=== PATIENT | male | born 1945 | race Caucasian/White ===

== ENCOUNTER 2017-07-09 13:06 | Emergency (ER) ==
[~2017-07-09] VITALS: Ht 165.1 cm; Wt 65.3 kg
[~2017-07-09 13:06] MED LIST: ATENOLOL50 MG PO; Aspirin PO; CLONAZEPAM0.5 MG PO; DICLOFENAC SOD100 MG PO; HYDROCODON-ACE1 EAC9 PO; LOSARTAN POTAS100 MG PO; MORPHINE PO; TIZANIDINE HCL4 MG PO
== END 2017-07-09 17:10 | disposition short-term general hospital (02) ==
LOC: ER 13:06
DX: R20.0 Anesthesia of skin (principal); M79.602 Pain in left arm; M79.601 Pain in right arm; M54.5 Low back pain; M79.89 Other specified soft tissue disorders

== ENCOUNTER → 2018-02-03 | Outpatient (CLI) | payer MEDICARE ==
[~2018-02-03] MED LIST changes: +REGADENOSON 0.4 MG/5 ML SYR IV ONE
--- NOTE | 2018-02-03 16:58 | Consultation ---
DATE OF CONSULTATION: February 03, 2018 CARDIOLOGY CONSULTATION REQUESTING PHYSICIAN: Dr. Andre Mendez REASON FOR CONSULTATION: Chest pain. HISTORY OF PRESENT ILLNESS: This is a 72-year-old man with a history of hypertension, who was referred for a nuclear stress test. The patient denies any history of heart disease. However, he does note that he has been short of breath for the last 6 weeks with left lower extremity swelling for the last 4 months. He denies any orthopnea or PND. Of note, he does endorse occasional chest tightness approximately once a week that is improved after he takes his anxiolytic. He denies chest pain otherwise as well as palpitations. REVIEW OF SYSTEMS: Negative, except as per HPI. PAST MEDICAL HISTORY 1. Hypertension. 2. History of polio. PAST SURGICAL HISTORY: Knee surgery. ALLERGIES: SULFA DRUGS. MEDICATIONS: Please see medication list. SOCIAL HISTORY: Previously smoked 1 pack per day for 50 years, quit 2 weeks ago. No alcohol or drugs. FAMILY HISTORY: Pertinent for parents with heart disease. Details are not available. PHYSICAL EXAMINATION VITAL SIGNS: Reviewed. GENERAL: Well-developed, well-nourished man in no acute distress. Awake and alert. HEENT: Normocephalic and atraumatic. Pupils are equal. No scleral icterus. NECK: Supple. No thyromegaly or cervical lymphadenopathy. No carotid bruit. LUNGS: Clear to auscultation bilaterally. No wheezes or crackles. CARDIOVASCULAR: Normal rate, regular rhythm. No murmur. Normal S1 and S2. ABDOMEN: Soft. Nontender. EXTREMITIES: No edema. NEURO: Nonfocal exam. IMPRESSION 1. Chest pain. 2. Dyspnea. 3. Hypertension. RECOMMENDATIONS: We will proceed with a pharmacologic nuclear stress test for further evaluation. Thank you. Job#: [id number]
--- NOTE | 2018-02-03 19:33 | Cardiology Report ---
DATE OF STUDY: PROCEDURE TITLE: Rest/stress single isotope SPECT imaging with pharmacologic stress and gated SPECT imaging. INDICATIONS: Chest pain. PROCEDURE: Pharmacologic stress testing was performed with regadenoson per protocol. The heart rate was 70 beats per minute at baseline and increased to a maximal heart rate of 97 beats per minute during the regadenoson infusion. The rest blood pressure was 146/77 mmHg and decreased to 137/70 mmHg, which is a normal response. The patient did not develop any significant symptoms. The resting electrocardiogram demonstrated normal sinus rhythm. There were no ST segment changes consistent with myocardial ischemia. Next, myocardial perfusion imaging was performed at rest following the injection of 11 mCi of tetrofosmin. At peak pharmacologic effect, The patient was injected with 33 mCi of tetrofosmin. Gated poststress tomographic imaging was performed. FINDINGS: The overall quality of the study is fair. The left ventricular cavity is noted to be normal size on the rest and stress studies. SPECT images demonstrate homogeneous tracer distribution throughout the myocardium. Gated SPECT imaging reveals normal myocardial thickening and wall motion. The left ventricular ejection fraction was calculated to be 66%. IMPRESSION: Myocardial perfusion imaging is normal. Overall left ventricular systolic function was normal without regional wall motion abnormalities. Job#: [id number] EV cc:BRYNN VICTOR MD
== END ==
LOC: NM 08:27
PROVIDERS: ATTEND Family Medicine
DX: I10 Essential (primary) hypertension (principal)
CPT/HCPCS: 78452; 93017; A9502

== ENCOUNTER 2018-03-19 14:21 | Emergency (ER) | payer MEDICARE ==
[~2018-03-19] VITALS: Ht 165.1 cm; Wt 65.3 kg
[~2018-03-19 14:21] MED LIST changes: -REGADENOSON 0.4 MG/5 ML SYR IV ONE
--- OUTSIDE RECORDS SUMMARY | 2018-03-19 14:25 | XMS REPORT ---
Author Author [facility] Address Unknown Phone Unavailable Care Team Providers Care Remnant Sorter Name Role Phone John VICTOR Unavailable Unavailable Problems This patient has no known problems. Allergies, Adverse Reactions, Alerts This patient has no known allergies or adverse reactions. Medications This patient has no known medications. Results Test Description Test Time Test Comments Text Results Atomic Results Result Comments Stress Test - Treadmill ONLY 2018-02-03 18:52:00 [place] [id number] Patient Name : BRYSON JACKSON MR #: [id number] : 1945 Age/Sex: 72/M Adm Physician : BRYNN VICTOR MD Admit Date : Location : [place] Room/Bed : REPORT: Cardiology Report DATE OF STUDY: PROCEDURE TITLE: Rest/stress single isotope SPECT imaging with pharmacologic stress and gated SPECT imaging. INDICATIONS: Chest pain. PROCEDURE: Pharmacologic stress testing was performed with regadenoson per protocol. The heart rate was 70 beats per minute at baseline and increased to a maximal heart rate of 97 beats per minute during the regadenoson infusion. The rest blood pressure was 146/77 mmHg and decreased to 137/70 mmHg, which is a normal response. The patient did not develop any significant symptoms. The resting electrocardiogram demonstrated normal sinus rhythm. There were no ST segment changes consistent with myocardial ischemia. Next, myocardial perfusion imaging was performed at rest following the injection of 11 mCi of tetrofosmin. At peak pharmacologic effect, The patient was injected with 33 mCi of tetrofosmin. Gated poststress tomograph ic imaging was performed. FINDINGS: The overall quality of the study is fair. The left ventricular cavity is noted to be normal size on the rest and stress studies. SPECT images demonstrate homogeneous tracer distribution throughout the myocardium. Gated SPECT imaging reveals normal myocardial thickening and wall motion. The left ventricular ejection fraction was calculated to be 66%. IMPRESSION: Myocardial perfusion imaging is normal. Overall left ventricular systolic function was normal without regional wall motion abnormalities. Job#: [id number] EV cc: BRYNN VICTOR MD Signature Date Dictated By: DEVANTE LONDON MD Transcribed By: EDS on 02/03/18 <Electronically signed by DEVANTE LONDON MD><<Signature on File>>02/22/18 3020 COPY TO:
[2018-03-19 15:11] LABS: BASOPHILS # (AUTO) 0.1 (0.0-0.1); BASOPHILS % 0.5 % (0.0-1.0); EOSINOPHILS # (AUTO) 0.3 (0.0-0.4); HEMATOCRIT 40.7 % (38.2-49.6); HEMOGLOBIN 13.1 g/dL (14.0-18.0); LYMPHOCYTES # (AUTO) 1.8 (1.0-3.2); LYMPHOCYTES % 13.1 % (18.0-39.1); MEAN CORPUSCULAR HEMOGLOBIN 30.4 pg (28-32); MEAN CORPUSCULAR HGB CONC 32.2 g/dL (31-35); MEAN CORPUSCULAR VOLUME 94.4 fL (81-99); MONOCYTES # (AUTO) 1.2 (0.2-0.8); MONOCYTES % 8.7 % (4.4-11.3); NEUTROPHILS # (AUTO) 10.2 (2.1-6.9); NEUTROPHILS % 74.6 % (38.7-80.0); PLATELET COUNT 374 x10e3/uL (140-360); RED BLOOD COUNT 4.31 x10e6/uL (4.3-5.7); RED CELL DISTRIBUTION WIDTH 14.1 % (11.7-14.4)
[2018-03-19 15:31] LABS: ALANINE AMINOTRANSFERASE 11 IU/L (0-55); ALBUMIN 4.5 g/dL (3.5-5.0); ALBUMIN/GLOBULIN RATIO 1.6 (0.8-2.0); ALKALINE PHOSPHATASE 93 IU/L (40-150); ANION GAP 14.8 mmol/L (8-16); BLOOD UREA NITROGEN 19 mg/dL (7-26); BUN/CREATININE RATIO 24 (6-25); CALCIUM 10.2 mg/dL (8.4-10.2); CARBON DIOXIDE 32 mmol/L (22-29); CHLORIDE 95 mmol/L (98-107); CREATINE KINASE 30 IU/L (30-200); CREATININE, SERUM 0.78 mg/dL (0.72-1.25); EST GLOMERULAR FILTRATION RATE > 60 ML/MIN (60-); GLUCOSE 109 mg/dL (74-118); SODIUM 139 mmol/L (136-145)
[2018-03-19 15:45] LABS: POTASSIUM 2.8 mmol/L (3.5-5.1)
[2018-03-19 16:01] LABS: CLARITY,URINE HAZY (CLEAR); COLOR,URINE YELLOW (YELLOW); KETONES,URINE NEGATIVE (NEGATIVE); LEUKOCYTE ESTERASE ,URINE NEGATIVE (NEGATIVE); NITRITE,URINE NEGATIVE (NEGATIVE); PROTEIN,URINE DIPSTICK NEGATIVE (NEGATIVE)
[2018-03-19 16:02] LABS: AMORPHOUS SEDIMENT,URINE FEW (FEW); BACTERIA,URINE FEW /HPF; BILIRUBIN,URINE NEGATIVE (NEGATIVE); EPITHELIAL CELLS,URINE FEW /LPF; HYALINE CASTS 0-1 (0-1); RBC,URINE 0-5 /HPF (0-5); URINE UROBILINOGEN 0.2 mg/dL (0.2 - 1)
--- NOTE | 2018-03-19 16:03 | Diagnostic Imaging Report ---
EXAMINATION: CHEST SINGLE (NOT PORTABLE) INDICATION: ^SOB ^[id number] ^1530 ^Y COMPARISON: None FINDINGS: AP view TUBES and LINES: None. LUNGS: Lungs are well inflated. Lungs are clear. There is no evidence of pneumonia or pulmonary edema. PLEURA: No pleural effusion or pneumothorax. HEART AND MEDIASTINUM: The cardiomediastinal silhouette is unremarkable. Mild atherosclerotic calcifications of the aortic arch. BONES AND SOFT TISSUES: No acute osseous lesion. Soft tissues are unremarkable. UPPER ABDOMEN: No free air under the diaphragm. Mild elevation of the left hemidiaphragm. IMPRESSION: No acute thoracic abnormality. Signed by: Dr. Delmy Saravia M.D. on 03/19/2018 3:59 PM
--- NOTE | 2018-03-19 16:47 | NUR ---
REC'D PT IN RM 3 FROM THE LOBBY VIA W/C FOR CHRONIC PAIN. PLACED ON THE MONITOR. BED LOW/LOCKED AND CALL ANDREW IN HAND
[2018-03-19] MEDS ORDERED: POTASSIUM CHLORIDE 20 MEQ TAB CR PO ONE (19:00)
[2018-03-19 21:28] LABS: ABG PCO2 49 mmHg (41-51); ABG PH 7.42 (7.31-7.41)
[2018-03-19 21:29] LABS: ABG HCO3 31 mmol/L (23-28); ABG PO2 87 mmHg (80-105)
== END 2018-03-19 19:50 | disposition home or self-care (01) ==
LOC: ER 14:21
DX: E87.6 Hypokalemia (principal); G89.4 Chronic pain syndrome
CPT/HCPCS: 36415; 36600; 71045; 80053; 81001; 82550; 82553; 82805; 83605; 84484; 85025; 93005; 99284